=== PATIENT | male | born 1965 | race Caucasian/White ===

== ENCOUNTER 2017-05-06 10:46 | Emergency (ER) | payer BC ==
[2017-05-06] MEDS ORDERED: Ondansetron INJ* 2 MG/ML VIAL IV ONE (11:00)
[2017-05-06] MEDS ORDERED: Morphine INJ* 4 MG/ML 1 ML CARPUJECT IV ONE (11:00)
[2017-05-06] MEDS ORDERED: Morphine INJ* 4 MG/ML 1 ML SYRINGE (NEW SYRINGE VERSION) ONE (11:09)
[2017-05-06] MEDS ORDERED: Morphine INJ* 4 MG/ML 1 ML SYRINGE (NEW SYRINGE VERSION) IV ONE (11:19)
--- NOTE | 2017-05-06 11:29 | RAD ---
CLINICAL HISTORY: Low back pain COMPARISON: None TECHNIQUE: Multiple contiguous axial CT scans were obtained of the abdomen and pelvis, without intravenous contrast enhancement. Coronal and sagittal multiplanar reformations are submitted for review. Oral contrast was not administered. Additionally, thin section axial images are obtained through the lumbar spine with coronal and sagittal multiplanar reformations. FINDINGS: The study is limited by the lack of intravenous contrast. This limits evaluation of the solid organs and vasculature. LUNG BASES: The lung bases are clear. LIVER: The liver is normal in shape, size, contour, and attenuation. BILE DUCTS: There is no intrahepatic or extrahepatic biliary dilatation. GALLBLADDER: The gallbladder is normal, without pericholecystic inflammatory change. PANCREAS: The pancreas is normal, without mass or ductal dilatation. SPLEEN: Normal in size and appearance. UPPER GI TRACT: Evaluation of the gastrointestinal tract is limited by incomplete gastric distention. The upper GI tract is unremarkable. SMALL BOWEL AND MESENTERY: The small bowel is normal in contour, course, and caliber. There is no obstruction or dilatation. COLON: The colon is normal in contour, course, caliber. There is no pericolonic inflammatory change. The appendix is not clearly visualized. There is no inflammatory change within the right lower quadrant. ADRENALS: Normal bilaterally. KIDNEYS: There are multiple parapelvic renal cysts bilaterally. There is no appreciable hydronephrosis or nephrolithiasis. BLADDER: The bladder is smooth in contour. PELVIC ORGANS: The prostate is diffusely enlarged. The seminal vesicles are symmetric. AORTA: There is calcific atherosclerotic disease of the abdominal aorta and its branches, without aneurysmal dilatation IVC: Unremarkable LYMPH NODES: There is no lymphadenopathy by size criteria. ABDOMINAL WALL: There is moderate to large fat-containing right inguinal hernia. There is a fat-containing left inguinal hernia. BONES AND SOFT TISSUES: There is mild extra scoliotic curvature of the spine. There is transitional last lumbar type vertebral body which will be labeled S1 for the purposes of counting. There is partial embolization of the S1 vertebral body. There is mild anterolateral marginal osteophyte formation. There is mild diffuse loss of vertebral disc height. There is no facet joint subluxation. On axial images, there is a left-sided disc protrusion at L2-L3 measuring approximately 0.5 cm in depth.. At L5-S1, there is broad-based disc bulge. There is no significant osseous neural foraminal area or central canal stenosis. OTHER: None IMPRESSION: 1. LEFT-SIDED DISC PROTRUSION AT L2-L3. 2. BILATERAL FAT-CONTAINING INGUINAL HERNIAS, GREATER ON THE RIGHT THAN ON THE LEFT. 3. NO APPRECIABLE HYDRONEPHROSIS OR NEPHROLITHIASIS.
[2017-05-06] MEDS ORDERED: LORazepam INJ* 2 MG/ML 1 ML VIAL IV ONE (12:02)
[2017-05-06 12:52] VITALS: BP 98/58
--- NOTE | 2017-05-06 15:35 | ED ---
Efrain Mortensen Sixian, scribed for Johan Dorantes MD on 05/06/17 at 1131 . Back Pain - HPI Summary HPI Summary: This patient is a 52 year old M BIBA to ED with a chief complaint of lower back pain since 4 days ago. Pt reports sliding off the bed and being unable to stand up. The injury is not described as traumatic. The patient rates the pain 9/10 in severity. Symptoms aggravated by movement, sitting and lifting the LE. Symptoms alleviated by nothing. Patient reports some LE pain. Patient denies abdominal pain, difficulty with BM or urination. - History of Current Complaint Chief Complaint: EDBackInjuryPain Stated Complaint: LOW BACK PAIN Time Seen by Provider: 05/06/17 10:52 Hx Obtained From: Patient Onset/Duration: Gradual Onset, Lasting Days, Still Present Onset/Duration: Started Days Ago, Atraumatic Timing: Constant, Lasting Days Severity Currently: Severe Pain Intensity: 9 Pain Scale Used: 0-10 Numeric Aggravating Symptom(s): Movement Alleviating Symptom(s): Nothing Associated Signs And Symptoms: Positive: Other - Patient reports some LE pain. Patient denies abdominal pain, difficulty with BM or urination. - Allergies/Home Medications Allergies/Adverse Reactions: Allergies Allergy/AdvReac Type Severity Reaction Status Date / Time No Known Allergies Allergy Verified 05/06/17 10:53 PMH/Surg Hx/FS Hx/Imm Hx Endocrine/Hematology History: Denies: Hx Diabetes Cardiovascular History: Denies: Hx Hypertension Sensory History: Denies: Hx Deafness - Surgical History Surgery Procedure, Year, and Place: RIGHT KNEE SURGERY Infectious Disease History: No Infectious Disease History: Denies: Traveled Outside the [place] in Last 30 Days - Family History Known Family History: Positive: Cardiac Disease Negative: Hypertension, Diabetes - Social History Alcohol Use: Occasionally Substance Use Type: Reports: None Smoking Status (MU): Never Smoked Tobacco Review of Systems Negative: Abdominal Pain Positive: Other - LE pain All Other Systems Reviewed And Are Negative: Yes Physical Exam - Summary Physical Exam Summary: General: well-appearing, mild pain distress Skin: warm, color reflects adequate perfusion, dry Head: normal Eyes: EOMI, TITUS ENT: normal Neck: supple, nontender Respiratory: CTA, breath sounds present Cardiovascular: RRR Abdomen: soft, nontender Bowel: present Musculoskeletal: normal, strength intact, Positive pain with LE movement. Neurological: normal, sensory/motor intact, A&O x3 Psychological: affect/mood appropriate Vital Signs On Initial Exam: Initial Vitals Temp Pulse Resp BP Pulse Ox 98.7 F 53 16 114/70 100 05/06/17 10:52 05/06/17 10:52 05/06/17 10:52 05/06/17 10:52 05/06/17 10:52 Diagnostics - Vital Signs Vital Signs Temp Pulse Resp BP Pulse Ox 05/06/17 11:19 14 05/06/17 10:53 64 18 114/70 98 05/06/17 10:52 98.7 F 53 16 114/70 100 - Laboratory Lab Statement: Any lab studies that have been ordered have been reviewed, and results considered in the medical decision making process. - CT Lumbar/spine CT Interpretation Completed By: Radiologist - 1. LEFT-SIDED DISC PROTRUSION AT L2-L3. 2. BILATERAL FAT-CONTAINING INGUINAL HERNIAS, GREATER ON THE RIGHT THAN ON THE LEFT. 3. NO APPRECIABLE HYDRONEPHROSIS OR NEPHROLITHIASIS. ED physician has reviewed this radiology report. Abd/pel CT Interpretation Completed By: Radiologist - 1. LEFT-SIDED DISC PROTRUSION AT L2-L3. 2. BILATERAL FAT-CONTAINING INGUINAL HERNIAS, GREATER ON THE RIGHT THAN ON THE LEFT. 3. NO APPRECIABLE HYDRONEPHROSIS OR NEPHROLITHIASIS. ED physician has reviewed this radiology report. Re-Evaluation - Re-Evaluation First Eval Re-Evaluation Time: 11:58 Change: Unchanged - Morphine was given, the pt is still in pain. Results were discussed. Back Pain Course/Dx - Course Course Of Treatment: BP noted and advised to follow up with PCP. Medications reviewed. DISCUSSED RESULTS WITH PATIENT/FAMILY. NO NEUROLOGIC DEFICIT. F/U PMD; RETURN IF WORSE. - Diagnoses Provider Diagnoses: Low back pain, Bulging lumbar disc Discharge - Discharge Plan Condition: Stable Disposition: HOME Prescriptions: Cyclobenzaprine TAB* [Flexeril 10 MG TAB*] 10 mg PO TID PRN #15 tab PRN Reason: Pain Ibuprofen TAB* [Motrin TAB* 600 MG] 600 mg PO Q6H PRN #30 tab PRN Reason: Pain oxyCODONE/Acetamin 5/325 MG* [Percocet 5/325 TAB*] 1 tab PO Q4H PRN #30 tab MDD 6 PRN Reason: Pain Patient Education Materials: Lumbar Disc Herniation (ED), Acute Low Back Pain ( ED) Forms: *Work Release Referrals: Steven PATEL,Estuardo Espinosa [Primary Care Provider] - Additional Instructions: FOLLOW UP WITH YOUR DOCTOR. RETURN TO THE EMERGENCY DEPARTMENT FOR ANY WORSENING OF YOUR CONDITION; PAIN, WEAKNESS, NUMBNESS, DIFFICULTY CONTROLLING BOWEL OR BLADDER OR QUESTIONS OR CONCERNS. The documentation as recorded by the Efrain hu Sixian accurately reflects the service I personally performed and the decisions made by me, Johan Dorantes MD.
== END 2017-05-06 13:10 | disposition home or self-care (01) ==
LOC: ED 10:46
DX: M51.26 Other intervertebral disc displacement, lumbar region (principal); K40.20 Bilateral inguinal hernia, without obstruction or gangrene, not specified as recurrent
CPT/HCPCS: 72131; 74176; 96374; 96375; 99284; J2060; J2270; J2405

== ENCOUNTER 2024-01-09 13:54 | Observation (INO) ==
[~2024-01-09 13:54] MED LIST: Metoclopramide 5 MG/ML VIAL (10 mg) IV PRN; NS 0.45% 1000 ml BAG 1,000 ML IV SCH; Naloxone 0.4 mg VIAL 0.4 mg/ml 1 ml VIAL IV PRN; Ondansetron 4 mg VIAL 2 MG/ML 2 ml VIAL IV PRN
[2024-01-09] MEDS ORDERED: ceFAZolin 2 GM PREMIX 2 GM/50 ML BAG ONE (14:14)
[2024-01-09] MEDS ORDERED: Lidocaine 2% PF 5 ML VIAL ONE ×2 (14:23→15:25)
[2024-01-09] MEDS ORDERED: fentaNYL 100 mcg/2 ml 50 MCG/ML VIAL ONE ×3 (14:24→19:21)
[2024-01-09] MEDS ORDERED: Midazolam 2 mg/2 ml VIAL 1 mg/ml 2 ml VIAL (2 mg) ONE ×2 (14:25→15:24)
[2024-01-09] MEDS ORDERED: Dexamethasone IV 4 MG/ML VIAL 1 ml VIAL ONE (14:25)
[2024-01-09] MEDS ORDERED: Ondansetron 4 mg VIAL 2 MG/ML 2 ml VIAL ONE (14:25)
[2024-01-09] MEDS: Lactated Ringers 1000 ml BAG 1,000 ML IV SCH ×2 (14:35→21:47)
[2024-01-09] MEDS: Scopolamine 1 mg/72hr PATCH TRANSDERM ONE (14:36)
[2024-01-09] MEDS: Buffered Lidocaine 1% SYRIN 1 ml INTRADERM ONE (14:36)
[2024-01-09] MEDS ORDERED: Tranexamic Acid 1 GM/100ML BAG 2,000 MG/200 ML BAG IV ONE (14:41)
[2024-01-09 14:47] LABS: Rapid COVID-19 Molecular Undetected (Undetected)
[2024-01-09] MEDS ORDERED: ROPIVACAINE 5 MG/ML 30 ML BTL (0.5%) ONE ×2 (15:19→15:24)
[2024-01-09] MEDS ORDERED: Rocuronium 50 mg VIAL 10 mg/ml 5 ml VIAL (50 mg) ONE ×2 (16:19→17:27)
[2024-01-09] MEDS ORDERED: Morphine 2 MG/ML SYRINGE IV PRN (16:48)
[2024-01-09] MEDS ORDERED: Lactulose 30 ml UDC PO PRN (16:48)
[2024-01-09] MEDS ORDERED: Ondansetron ODT 4 mg TAB 4 MG TAB PO PRN (16:48)
[2024-01-09] MEDS ORDERED: Ondansetron 4 mg VIAL 2 MG/ML 2 ml VIAL IV PRN (16:48)
[2024-01-09] MEDS ORDERED: Calcium Carb (TUMS) 500 mg CHEW TAB PO PRN (16:48)
[2024-01-09] MEDS ORDERED: Magnesium Hydroxide LIQ 30 ML UDC PO PRN (16:48)
[2024-01-09] MEDS ORDERED: HYDROmorphone 0.5 MG/0.5 ML SYRINGE ONE (17:21)
[2024-01-09] MEDS ORDERED: Glycopyrrolate IV 0.2 MG/ML 1 ML VIAL ONE ×2 (17:21→17:53)
[2024-01-09] MEDS ORDERED: fentaNYL 250 mcg/5 ml 50 MCG/ML 5 ml VIAL (250 MCG) ONE (17:23)
[2024-01-09] MEDS: fentaNYL 100 mcg/2 ml 50 MCG/ML VIAL IV PRN (19:25)
[2024-01-09] MEDS: ceFAZolin 2 GM PREMIX 2 GM/50 ML BAG IV SCH (21:00)
[2024-01-09] MEDS: Acetaminophen IV 1 GM/100ML 1,000 MG/100 ML BAG IV ONE (21:00)
[2024-01-09] MEDS: Magnesium Hydroxide LIQ 30 ML UDC PO SCH (21:52)
[2024-01-10] MEDS: ceFAZolin 2 GM PREMIX 2 GM/50 ML BAG IV SCH (00:32)
[2024-01-10 06:31] LABS: Hematocrit 35.7 % (38-53); Hemoglobin 11.7 g/dL (13.2-16.3); Mean Platelet Volume 8.4 fL (7.5-11.2); Platelet Count 283 10^3/uL (150-450)
[2024-01-10 07:23] LABS: Calcium 9.1 mg/dL (8.6-10.3); Creatinine, Serum 1.21 mg/dL (0.67-1.17); Potassium 4.5 mmol/L (3.5-5.0); eGFR CKD-EPI 69.8 (>60)
[2024-01-10] MEDS: Vitamin THERAPEUTIC TAB PO SCH (09:25)
[2024-01-10 14:01] VITALS: BP 117/72
== END 2024-01-10 17:00 | disposition home or self-care (01) ==
LOC: SSU 13:54 → OR 13:54
PROVIDERS: ADMIT Orthopaedic Surgery Adult Reconstructive Orthopaedic Surgery; ATTEND Orthopaedic Surgery Adult Reconstructive Orthopaedic Surgery